=== PATIENT | male | born 1990 | race Caucasian/White ===

== ENCOUNTER 2016-12-15 08:08 | Day surgery (SDC) | payer BC ==
--- NOTE | ~2016-12-15 | OP ---
Record Of Operation [facility] [address] [place]. [address] NAME: DENIA FRITZ : 89 [place]US [place] [facility] [place] [id number] AGE: 26 ADM/REG DATE : 12/15/16 MR#: [id number] REPORT SERV DATE: 12/15/16 DICTATED BY: MARIANA RAMSAY DATE: 12/15/16 REPORT STATUS : Draft TRANSCRIBED BY: CRISTIANA DATE: 12/15/16 DATE OF PROCEDURE: 12/15/2016 PREPROCEDURE DIAGNOSIS: Hidradenitis. POSTPROCEDURE DIAGNOSIS: Hidradenitis. PROCEDURE: Incision and drainage. Exam under anesthesia with seton placement of left buttocks hidradenitis. DESCRIPTION OF PROCEDURE: The patient was taken to the operating room, positioned in the left lateral decubitus position. MAC anesthetic. Prepped and draped in the usual sterile fashion. A pudendal nerve block was placed with a total of 10 mL of a TAP block solution injected locally and bilaterally. Following this, anoscopy was performed with a medium, then lighted Hill-Mccloud retractor. There was no evidence of tracking towards the anus at all. The external opening was 5 cm to the left of the anus near the ischial tuberosity. It was very superficial. It did track laterally towards the buttocks into an area that was firm and indurated, but no evidence of infection or erythema. Due to the size of the length of this cavity, which was more than 8 cm, an incision was made with cautery overlying the skin over the tract and a [place] clamp was placed to the tract grasping the vessel loop Threading it through the tract to keep the tract open. The tract was then curetted of all granulation tissue and the external opening was actually excised using a 10 blade. The patient was cleaned and dried followed by two 4x4s, peripad, and mesh panties. He tolerated the procedure well. COLLEEN/CRISTIANA Mariana Ramsay M.D. / [id number] CC: Dayanara Brown, TARA Rosas
[~2016-12-15 08:08] MED LIST: *DENIES
== END 2016-12-15 14:46 | disposition home or self-care (01) ==
LOC: SDC 08:08
PROVIDERS: Surgery
PROC: 0DQQ8ZZ Repair Anus, Via Natural or Artificial Opening Endoscopic (ICD-10-PCS; principal; 2016-12-15 09:30)
DX: L73.2 Hidradenitis suppurativa (principal); L01.02 Bockhart's impetigo; F17.210 Nicotine dependence, cigarettes, uncomplicated; F41.9 Anxiety disorder, unspecified; F32.9 Major depressive disorder, single episode, unspecified; K21.9 Gastro-esophageal reflux disease without esophagitis; Z98.890 Other specified postprocedural states
CPT/HCPCS: 88305; J0690; J2795; J3010